=== PATIENT | female | born 1995 | race Caucasian/White ===

== ENCOUNTER 2019-04-02 11:50 | Emergency (ER) | payer BC ==
[2019-04-02 12:50] VITALS: BP 124/92
[2019-04-02] MEDS ORDERED: Sodium Chloride 0.9% 10 ML Syringe FLUSH PRN (14:25)
[2019-04-02] MEDS ORDERED: Ondansetron 4 MG/2 ML SDV IVPUSH ONE (14:25)
[2019-04-02] MEDS ORDERED: Sodium Chloride 0.9% 1,000 ML IV STA (14:25)
[2019-04-02] MEDS ORDERED: Diatrizoate Meglumine/Diatrizoate Sodium 37% 120 ML Bottle PO ONE (14:44)
[2019-04-02] MEDS ORDERED: Iopamidol 612 MG/ML 100 ML Bottle IVPUSH ONE (14:44)
[2019-04-02] MEDS: Sodium Chloride 0.9% 10 ML Syringe FLUSH PRN ×2 (14:47→15:53)
--- NOTE | 2019-04-02 16:20 | CT ---
CT abdomen and pelvis Technique: Multiple axial sections were obtained from above the dome of the diaphragm inferiorly through the pubic symphysis. Intravenous and oral contrast was utilized. Delayed images were obtained through the bladder. Findings: Visualized portions of both lung bases show nothing acute. No focal abnormality is seen within the liver. Spleen appears within normal limits. Gallbladder contains no calcified gallstones. Adrenal glands show no nodule. Pancreas is within normal limits. Kidneys show symmetric contrast enhancement without hydronephrosis or mass. Aorta shows no aneurysm. No retroperitoneal adenopathy or mesenteric abnormalities are seen. No pelvic mass or adenopathy is identified. Appendix not definitely visualized. Delayed images shows contrast within the distal ureters and within the bladder. Bone window settings were reviewed which appear within normal limits for the patient's age. Impression: 1. Nothing acute is appreciated on CT study of the abdomen and pelvis. No etiology is identified on this study to indicate a source of rectal bleeding. Diagnostic code #1
--- NOTE | 2019-04-02 18:09 | EDM.PDOC ---
ED HPI GENERAL MEDICAL PROBLEM - General Chief Complaint: Gastrointestinal Problem Stated Complaint: RECTAL BLEEDING Time Seen by Provider: 04/02/19 14:08 Source of Information: Reports: Patient History Limitations: Reports: No Limitations - History of Present Illness INITIAL COMMENTS - FREE TEXT/NARRATIVE: The patient presents with rectal bleeding. This started 1 hour before arrival. The patient did not come back right away due to how busy it was in the ER. By the time she came back she had more bleeding and she was a little lightheaded and nauseated. She has some mild pain to the left abdomen. She is currently on her period. She has no fever, chills, cough, congestion, runny nose, chest pain or shortness of breath. She does have some hemorrhoids but she is not sure if those are bleeding. Onset: Sudden Duration: Hour(s): Location: Reports: Abdomen Quality: Reports: Ache Severity: Mild Improves with: Reports: None Worsens with: Reports: None Associated Symptoms: Reports: Nausea/Vomiting. Denies: Chest Pain, Cough, Fever /Chills, Headaches, Shortness of Breath Lower Abdominal Pain Score (Numeric/FACES): 6 - Related Data Allergies Allergy/AdvReac Type Severity Reaction Status Date / Time Latex, Natural Rubber Allergy Hives Verified 04/02/19 12:50 Home Meds: Home Meds Albuterol Sulfate [Albuterol Sulfate HFA] 8.5 gm IH ASDIRECTED PRN 03/15/15 [ History] Budesonide/Formoterol [Symbicort 160-4.5 MCG] 10.2 gm IH ASDIRECTED PRN [History] Hydrocortisone [Hydrocortisone 2.5% Crm] 30 gm .XX BID #1 tube 04/02/19 [Rx] Past Medical History Respiratory History: Reports: Asthma Other [employer] History: had some bleeding throughout the . unable to determine cause Other Dermatologic History: eczema. lesion noted on left hand - Past Surgical History Female Surgical History: Reports: D&C Social & Family History - Tobacco Use Smoking Status *Q: Never Smoker - Recreational Drug Use Recreational Drug Use: No ED ROS GENERAL - Review of Systems Review Of Systems: See Below Constitutional: Reports: No Symptoms HEENT: Reports: No Symptoms Respiratory: Reports: No Symptoms Cardiovascular: Reports: No Symptoms Endocrine: Reports: No Symptoms GI/Abdominal: Reports: Abdominal Pain (mild), Bloody Stool, Nausea. Denies: Vomiting : Reports: No Symptoms Musculoskeletal: Reports: No Symptoms ED EXAM, GI/ABD - Physical Exam Exam: See Below Exam Limited By: No Limitations General Appearance: Alert, No Apparent Distress Ears: Normal External Exam Nose: Normal Inspection Head: Atraumatic, Normocephalic Neck: Normal Inspection Respiratory/Chest: No Respiratory Distress, Lungs Clear, Normal Breath Sounds Cardiovascular: Regular Rate, Rhythm, No Edema, No Murmur GI/Abdominal Exam: Soft, Non-Tender, No Organomegaly, No Mass Rectal (Female) Exam: Other (Hemorrhoids with what appears to be an anterior hemorrhoid that is the bleeding source) Back Exam: Normal Inspection Extremities: Normal Inspection Course - Vital Signs Last Recorded V/S: Last Vital Signs Temp 98.7 F 04/02/19 12:46 Pulse 82 04/02/19 12:46 Resp 16 04/02/19 12:46 BP 124/92 H 04/02/19 12:46 Pulse Ox 95 04/02/19 12:46 Orthostatic Blood Pressure [ 129/73 Standing] - Orders/Labs/Meds Orders: Active Orders 24 hr Category Date Time Status Peripheral IV Care [RC] . DIRECTED Care 04/02/19 14:25 Active Sodium Chloride 0.9% [Saline Flush] Med 04/02/19 14:25 Active 10 ml FLUSH ASDIRECTED PRN Sodium Chloride 0.9% [Saline Flush] Med 04/02/19 14:44 Active 10 ml FLUSH ONETIME PRN ED Antiemetic Medication Reflex [OM.PC] Stat Oth 04/02/19 14:25 Ordered Peripheral IV Insertion Adult [OM.PC] Stat Oth 04/02/19 14:25 Ordered Medication Orders Sodium Chloride (Saline Flush) 10 ml FLUSH ASDIRECTED PRN PRN Reason: Keep Vein Open Last Admin: 04/02/19 14:40 Dose: 10 ml Sodium Chloride (Saline Flush) 10 ml FLUSH ONETIME PRN PRN Reason: IV FLUSH Last Admin: 04/02/19 15:53 Dose: 10 ml Admin: 04/02/19 14:47 Dose: 10 ml Labs: Laboratory Tests 04/02/19 04/02/19 04/02/19 Range/Units 14:37 14:37 14:37 WBC 6.66 (3.98-10.04) K/mm3 RBC 5.27 H (3.98-5.22) M/mm3 Hgb 15.5 (11.2-15.7) gm/L Hct 45.0 H (34.1-44.9) % MCV 85.4 (79.4-94.8) fl MCH 29.4 (25.6-32.2) pg MCHC 34.4 (32.2-35.5) g/dl RDW Std Deviation 38.7 (36.4-46.3) fL Plt Count 322 (182-369) K/mm3 MPV 9.6 (9.4-12.3) fl Neut % (Auto) 65.3 (34.0-71.1) % Lymph % (Auto) 23.4 (19.3-51.7) % Beaver % (Auto) 7.8 (4.7-12.5) % Eos % (Auto) 2.7 (0.7-5.8) Baso % (Auto) 0.6 (0.1-1.2) % Neut # (Auto) 4.35 (1.56-6.13) K/mm3 Lymph # (Auto) 1.56 (1.18-3.74) K/mm3 Beaver # (Auto) 0.52 H (0.24-0.36) K/mm3 Eos # (Auto) 0.18 (0.04-0.36) K/mm3 Baso # (Auto) 0.04 (0.01-0.08) K/mm3 Sodium 143 (136-145) mEq/L Potassium 3.5 (3.5-5.1) mEq/L Chloride 104 (98-107) mEq/L Carbon Dioxide 26 (21-32) mEq/L Anion Gap 16.5 H (5-15) BUN 15 (7-18) mg/dL Creatinine 0.7 (0.55-1.02) mg/dL Est Cr Clr Drug Dosing 104.28 mL/min Estimated GFR (MDRD) > 60 (>60) mL/min BUN/Creatinine Ratio 21.4 H (14-18) Glucose 76 (74-106) mg/dL Calcium 9.5 (8.5-10.1) mg/dL Total Bilirubin 0.5 (0.2-1.0) mg/dL AST 15 (15-37) U/L ALT 22 (14-59) U/L Alkaline Phosphatase 66 (46-116) U/L Total Protein 8.4 H (6.4-8.2) g/dl Albumin 4.5 (3.4-5.0) g/dl Globulin 3.9 gm/dL Albumin/Globulin Ratio 1.2 (1-2) Lipase 128 (73-393) U/L HCG, Qual Negative (NEGATIVE) Blood Type Gel Antibody Screen 04/02/19 Range/Units 14:37 WBC (3.98-10.04) K/mm3 RBC (3.98-5.22) M/mm3 Hgb (11.2-15.7) gm/L Hct (34.1-44.9) % MCV (79.4-94.8) fl MCH (25.6-32.2) pg MCHC (32.2-35.5) g/dl RDW Std Deviation (36.4-46.3) fL Plt Count (182-369) K/mm3 MPV (9.4-12.3) fl Neut % (Auto) (34.0-71.1) % Lymph % (Auto) (19.3-51.7) % Beaver % (Auto) (4.7-12.5) % Eos % (Auto) (0.7-5.8) Baso % (Auto) (0.1-1.2) % Neut # (Auto) (1.56-6.13) K/mm3 Lymph # (Auto) (1.18-3.74) K/mm3 Beaver # (Auto) (0.24-0.36) K/mm3 Eos # (Auto) (0.04-0.36) K/mm3 Baso # (Auto) (0.01-0.08) K/mm3 Sodium (136-145) mEq/L Potassium (3.5-5.1) mEq/L Chloride (98-107) mEq/L Carbon Dioxide (21-32) mEq/L Anion Gap (5-15) BUN (7-18) mg/dL Creatinine (0.55-1.02) mg/dL Est Cr Clr Drug Dosing mL/min Estimated GFR (MDRD) (>60) mL/min BUN/Creatinine Ratio (14-18) Glucose (74-106) mg/dL Calcium (8.5-10.1) mg/dL Total Bilirubin (0.2-1.0) mg/dL AST (15-37) U/L ALT (14-59) U/L Alkaline Phosphatase (46-116) U/L Total Protein (6.4-8.2) g/dl Albumin (3.4-5.0) g/dl Globulin gm/dL Albumin/Globulin Ratio (1-2) Lipase (73-393) U/L HCG, Qual (NEGATIVE) Blood Type A POSITIVE Gel Antibody Screen Negative Meds: Medications Generic Name Dose Route Start Last Admin Trade Name Freq PRN Reason Stop Dose Admin Sodium Chloride 10 ml 04/02/19 14:25 04/02/19 14:40 Saline Flush FLUSH 10 ml ASDIRECTED PRN Administration Keep Vein Open Sodium Chloride 10 ml 04/02/19 14:44 04/02/19 15:53 Saline Flush FLUSH 10 ml ONETIME PRN Administration IV FLUSH Discontinued Medications Generic Name Dose Route Start Last Admin Trade Name Freq PRN Reason Stop Dose Admin Diatrizoate Meglum/Diatrizoate Sod 120 ml 04/02/19 14:44 04/02/19 15:53 Gastrografin 37% PO 04/02/19 14:45 120 ml ONETIME ONE Administration Sodium Chloride 1,000 mls @ 1,000 mls/hr 04/02/19 14:25 04/02/19 14:40 Normal Saline IV 04/02/19 15:24 1,000 mls/hr .BOLUS STA Administration Iopamidol 100 ml 04/02/19 14:44 04/02/19 15:53 Isovue-300 (61%) IVPUSH 04/02/19 14:45 100 ml ONETIME ONE Administration Ondansetron HCl 4 mg 04/02/19 14:25 04/02/19 14:40 Zofran IVPUSH 04/02/19 14:26 4 mg ONETIME ONE Administration - Re-Assessments/Exams Free Text/Narrative Re-Assessment/Exam: 04/02/19 18:02 I ordered an IV NS 1L bolus, labs, and a CT of her abdomen and pelvis. Her Hgb was normal at 15.5. Her CMP looks good. Her HCG is negative. Her CT shows nothing acute. She was here for awhile because of how busy it is and the bleeding got better. I will get her on some hydrocortisone cream and some lidocaine and have her follow up with Dr Al. I called Dr Al and she can see her in clinic. Departure - Departure Time of Disposition: 18:10 Disposition: Home, Self-Care 01 Condition: Good Clinical Impression: Rectal bleeding Hemorrhoids Qualifiers: Hemorrhoid type: other Qualified Code(s): K64.8 - Other hemorrhoids - Discharge Information *PRESCRIPTION DRUG MONITORING PROGRAM REVIEWED*: No *COPY OF PRESCRIPTION DRUG MONITORING REPORT IN PATIENT SEBASTIAN: No Prescriptions: Hydrocortisone [Hydrocortisone 2.5% Crm] 30 gm .XX BID #1 tube Referrals: Zheng Rushing MD [Primary Care Provider] - Servando-Pita Alvarenga MD [Physician] - 2 Days Additional Instructions: Drink plenty of fluids. Take a stool softener like colace to keep your bowel movements lose. Use the hydrocortisone cream 2 times per day on the hemorrhoids. Follow up with Dr Al within a week. - My Orders Last 24 Hours: My Active Orders 04/02/19 14:25 Peripheral IV Care [RC] . DIRECTED Sodium Chloride 0.9% [Saline Flush] 10 ml FLUSH ASDIRECTED PRN ED Antiemetic Medication Reflex [OM.PC] Stat Peripheral IV Insertion Adult [OM.PC] Stat 04/02/19 14:44 Sodium Chloride 0.9% [Saline Flush] 10 ml FLUSH ONETIME PRN - Assessment/Plan Last 24 Hours: My Active Orders 04/02/19 14:25 Peripheral IV Care [RC] . DIRECTED Sodium Chloride 0.9% [Saline Flush] 10 ml FLUSH ASDIRECTED PRN ED Antiemetic Medication Reflex [OM.PC] Stat Peripheral IV Insertion Adult [OM.PC] Stat 04/02/19 14:44 Sodium Chloride 0.9% [Saline Flush] 10 ml FLUSH ONETIME PRN
== END 2019-04-02 18:28 | disposition home or self-care (01) ==
LOC: JD.ED 11:50
DX: K64.8 Other hemorrhoids (principal); R42 Dizziness and giddiness; J45.909 Unspecified asthma, uncomplicated; Z91.040 Latex allergy status; Z79.51 Long term (current) use of inhaled steroids
CPT/HCPCS: 36415; 74177; 80053; 83690; 84703; 85025; 86850; 86900; 86901; 96361; 96374; 99284; J2405; J7040; Q9963; Q9967; 99283

== ENCOUNTER 2019-06-09 17:27 | Emergency (ER) | payer BC ==
[2019-06-09 17:59] VITALS: BP 112/69; PULSE 80
[2019-06-09] MEDS ORDERED: HYDROmorphone 0.5 MG/0.5 ML Syringe IM ONE (18:20)
[2019-06-09] MEDS ORDERED: Ondansetron 4 MG Tab.DIS PO ONE (18:20)
--- NOTE | 2019-06-09 18:41 | CR ---
Left foot: 4 views left foot were obtained. Comparison: No prior foot exam. Nondisplaced fracture is identified within the base of the fifth metatarsal. No additional fracture or other bony abnormality is seen. Incidental note of ununited os navicularis. Impression: 1. Nondisplaced fracture involving the base of the fifth metatarsal. 2. No other acute abnormality is seen. Diagnostic code #3
--- NOTE | 2019-06-09 20:04 | EDM.PDOC ---
ED HPI GENERAL MEDICAL PROBLEM - General Chief Complaint: Lower Extremity Injury/Pain Stated Complaint: R FOOT INJURY Time Seen by Provider: 06/09/19 18:43 Source of Information: Reports: Patient, RN Notes Reviewed History Limitations: Reports: No Limitations - History of Present Illness INITIAL COMMENTS - FREE TEXT/NARRATIVE: Patient is a 23-year-old female who presents to the ED for evaluation of a right foot injury. Patient states she was carrying an empty car seat, she tripped off the edge of her driveway. She states she felt an instant pop, and severe pain to the right lateral foot. She then noticed some severe right foot bruising and swelling. She would rate her pain at a 5 out of 10, she did not take any pain medications prior to coming to the ER, she states that it is difficult to bear weight on the extremity. Denies any numbness or tingling distal to the injury, she denies any pain that radiates superior to the injury. She denies any ankle pain. Right Feet Pain Score (Numeric/FACES): 5 - Related Data Allergies Allergy/AdvReac Type Severity Reaction Status Date / Time Latex, Natural Rubber Allergy Hives Verified 06/09/19 17:59 Home Meds: Home Meds Albuterol Sulfate [Albuterol Sulfate HFA] 8.5 gm IH ASDIRECTED PRN 03/15/15 [ History] Budesonide/Formoterol [Symbicort 160-4.5 MCG] 10.2 gm IH ASDIRECTED PRN [History] Acetaminophen/oxyCODONE [Percocet 325-5 MG] 1 each PO Q6H PRN #20 tab 06/09/19 [ Rx] ClomiPRAMINE [ClomiPRAMINE HCl] 25 mg PO DAILY 06/09/19 [History] Past Medical History Respiratory History: Reports: Asthma Other [employer] History: had some bleeding throughout the . unable to determine cause Other Dermatologic History: eczema. lesion noted on left hand - Past Surgical History HEENT Surgical History: Reports: Adenoidectomy, Tonsillectomy Female Surgical History: Reports: D&C Social & Family History - Family History Family Medical History: Noncontributory - Tobacco Use Smoking Status *Q: Never Smoker Second Hand Smoke Exposure: No - Caffeine Use Caffeine Use: Reports: Coffee, Soda, Tea - Recreational Drug Use Recreational Drug Use: No Review of Systems - Review of Systems Review Of Systems: ROS reveals no pertinent complaints other than HPI. Musculoskeletal: Reports: Foot Pain (R lateral foot pain) ED EXAM, GENERAL - Physical Exam Exam: See Below Exam Limited By: No Limitations General Appearance: Alert, WD/WN, No Apparent Distress (Patient appears to be in pain, however is in no obvious distress.) Respiratory/Chest: No Respiratory Distress, Lungs Clear, Normal Breath Sounds, No Accessory Muscle Use, Chest Non-Tender Cardiovascular: Normal Peripheral Pulses, Regular Rate, Rhythm, No Murmur Peripheral Pulses: 3+: Dorsalis Pedis (L), Dorsalis Pedis (R) Extremities: Normal Range of Motion, Normal Capillary Refill, Other (Bruising on the lateral aspect of the right foot over the fifth metatarsal) Neurological: Alert, Oriented, Normal Cognition, No Motor/Sensory Deficits Psychiatric: Normal Affect, Normal Mood Skin Exam: Warm, Dry, Intact, No Rash, Ecchymosis (Right lateral foot over the fifth metatarsal, this is tender to palpation.). No: Wound/Incision Course - Vital Signs Last Recorded V/S: Last Vital Signs Temp 99.0 F 06/09/19 17:55 Pulse 80 06/09/19 17:55 Resp 16 06/09/19 17:55 BP 112/69 06/09/19 17:55 Pulse Ox 98 06/09/19 17:55 - Orders/Labs/Meds Orders: Active Orders 24 hr Category Date Time Status DME for Discharge [COMM] Routine Oth 06/09/19 19:51 Ordered Meds: Medications Discontinued Medications Generic Name Dose Route Start Last Admin Trade Name Nel PRN Reason Stop Dose Admin Hydromorphone HCl 0.5 mg 06/09/19 18:20 06/09/19 18:32 Dilaudid IM 06/09/19 18:21 0.5 mg ONETIME ONE Administration Ondansetron HCl 4 mg 06/09/19 18:20 06/09/19 18:33 Zofran Odt PO 06/09/19 18:21 4 mg ONETIME ONE Administration - Re-Assessments/Exams Free Text/Narrative Re-Assessment/Exam: 06/09/19 20:30 Patient presents to the ED for evaluation of a right foot injury. Foot x-rays were obtained at time of triage, and this demonstrated a nondisplaced fracture at the base of the fifth metatarsal. There were no other acute abnormalities noted. I did give the patient 0.5 mg so wanted, she did receive good pain control with this. Options were discussed regarding watching for walking boot versus splint. However she will need to be nonweightbearing. She decided to go with a walking boot, will use crutches until cleared by Ortho, or obtain one of those knee scooters, she thinks her [id number] has had one in the past. She states that she has 2 young children at home, so it'll be hard for her to be on crutches. I stressed the importance of being nonweightbearing, she is understanding of this. Patient was given some tablets of Percocet for pain control that was not relieved by Tylenol or ibuprofen alone. Departure - Departure Time of Disposition: 20:04 Disposition: Home, Self-Care 01 Condition: Fair Clinical Impression: Fracture of fifth metatarsal bone Qualifiers: Encounter type: initial encounter Fracture type: closed Fracture alignment: nondisplaced Laterality: right Qualified Code(s): S92.354A - Nondisplaced fracture of fifth metatarsal bone, right foot, initial encounter for closed fracture - Discharge Information *PRESCRIPTION DRUG MONITORING PROGRAM REVIEWED*: No *COPY OF PRESCRIPTION DRUG MONITORING REPORT IN PATIENT SEBASTIAN: No Prescriptions: Acetaminophen/oxyCODONE [Percocet 325-5 MG] 1 each PO Q6H PRN #20 tab PRN Reason: Pain Instructions: Metatarsal Fracture Referrals: Zheng Rushing MD [Primary Care Provider] - Forms: ED Department Discharge Additional Instructions: You have been evaluated in the ED for your right foot injury. Your x-ray demonstrated that you fractured the base of your fifth metatarsal on your right foot. This is nondisplaced, and should heal nicely. Bones take about 6-8 weeks to heal completely. You were placed in a walking boot, however just because this states it is a walking boot, you may not walk on this extremity. You will need to be nonweightbearing, and use crutches provided until Ortho can clear you completely. He may try to obtain a knee scooter, if the crutches are to cumbersome for you. But again you need to remain nonweightbearing until Ortho can clear you Please use ice as tolerated to the affected area. You may take Tylenol 500 mg or ibuprofen 600mg q6 hrs for pain relief. Please do so until you have a tolerable level of pain with activity. Do not exceed 4000mg tylenol, Do not exceed 3200mg ibuprofen in a 24 hour time period. You were given a prescription for Percocet 5/325, you may take this 1 tablet every 6 hours PRN for pain not relieved by Tylenol or ibuprofen alone. Please call Ortho for follow-up and further evaluation Dr. Burleson is our orthopedic surgeon, his office number is [phone]. Please call and set up an appointment as soon as possible for further management. Please return to ED if your symptoms should change or worsen. - My Orders Last 24 Hours: My Active Orders 06/09/19 19:51 DME for Discharge [COMM] Routine - Assessment/Plan Last 24 Hours: My Active Orders 06/09/19 19:51 DME for Discharge [COMM] Routine
== END 2019-06-09 20:56 | disposition home or self-care (01) ==
LOC: JD.ED 17:27
DX: S92.354A Nondisplaced fracture of fifth metatarsal bone, right foot, initial encounter for closed fracture (principal); J45.909 Unspecified asthma, uncomplicated; Z91.040 Latex allergy status; W18.40XA Slipping, tripping and stumbling without falling, unspecified, initial encounter; Y93.01 Activity, walking, marching and hiking; Y92.093 Driveway of other non-institutional residence as the place of occurrence of the external cause
CPT/HCPCS: 73630; 96372; 99283; A9270; J1170

== ENCOUNTER 2022-07-24 07:04 | Day surgery (SDC) | payer BC ==
[2022-07-24] MEDS ORDERED: EPINEPHrine 1 MG/ML SDV ONE (07:05)
[2022-07-24] MEDS ORDERED: Lidocaine 1% 5 ML VIAL INJECT ONE (07:05)
[2022-07-24] MEDS ORDERED: Sodium Chloride 0.9% 50 ML SDV ONE (07:13)
[2022-07-24] MEDS ORDERED: Sodium Chloride 0.9% 10 ML Syringe FLUSH PRN (07:34)
[2022-07-24] MEDS ORDERED: Lidocaine 1%/Sod Bicarbonate in NS 8.4% 1 ML Syringe IDERM PRN (07:34)
[2022-07-24] MEDS ORDERED: Lactated Ringers 1,000 ML IV SCH (07:45)
[2022-07-24] MEDS ORDERED: Sodium Chloride 0.9% 10 ML Syringe FLUSH SCH (09:00)
[2022-07-24] MEDS ORDERED: Midazolam 1 MG/ML 2 ML SDV ONE (09:12)
[2022-07-24] MEDS ORDERED: Propofol 200 MG/20 ML SDV ONE (09:12)
[2022-07-24] MEDS ORDERED: fentaNYL 100 MCG/2 ML SDV ONE (09:12)
[2022-07-24] MEDS ORDERED: Lidocaine 1% 6 ML ONE (09:13)
[2022-07-24] MEDS ORDERED: Succinylcholine 200 MG/10 ML MDV ONE (09:21)
[2022-07-24] MEDS ORDERED: ceFAZolin 2 GM Vial ONE (09:40)
[2022-07-24] MEDS ORDERED: Metoclopramide 10 MG/2 ML SDV ONE (09:52)
[2022-07-24] MEDS ORDERED: Ondansetron 4 MG/2 ML SDV ONE (09:52)
[2022-07-24] MEDS ORDERED: fentaNYL 100 MCG/2 ML SDV IVPUSH PRN (10:03)
[2022-07-24] MEDS ORDERED: HYDROmorphone 0.5 MG/0.5 ML Syringe IVPUSH PRN (10:03)
[2022-07-24] MEDS ORDERED: Lactated Ringers 1,000 ML ONE (10:18)
[2022-07-24] MEDS ORDERED: Acetaminophen/oxyCODONE 325-5 MG Tab PO PRN (10:37)
[2022-07-24] MEDS ORDERED: Ondansetron 4 MG/2 ML SDV IVPUSH PRN (10:37)
[2022-07-24] MEDS ORDERED: Ketorolac 30 MG/ML SDV IVPUSH SCH (10:45)
[2022-07-24] MEDS ORDERED: Meperidine 50 MG/ML Vial ONE (10:54)
[2022-07-24] MEDS ORDERED: Acetaminophen/oxyCODONE 325-5 MG Tab PO ONE (11:10)
[2022-07-24 12:48] VITALS: BP 113/72; PULSE 72
[2022-07-24] MEDS ORDERED: Ibuprofen 600 MG Tab PO PRN (16:45)
== END 2022-07-24 12:35 | disposition home or self-care (01) ==
LOC: JD.SDS 07:04
PROVIDERS: ATTEND Obstetrics & Gynecology
DX: N75.0 Cyst of Bartholin's gland (principal); N90.7 Vulvar cyst; N81.10 Cystocele, unspecified; N81.6 Rectocele; J45.909 Unspecified asthma, uncomplicated; K21.9 Gastro-esophageal reflux disease without esophagitis; Z91.040 Latex allergy status; Z91.018 Allergy to other foods; Z79.899 Other long term (current) drug therapy; Z98.890 Other specified postprocedural states
CPT/HCPCS: 57260; A9270; J0171; J0330; J0690; J2175; J2250; J2405; J2704; J2765; J3010; J7120; 00942

== ENCOUNTER 2023-08-08 07:47 | Day surgery (SDC) | payer BC ==
[~2023-08-08 07:47] MED LIST: Lactated Ringers 1,000 ML IV SCH; Sodium Chloride 0.9% 10 ML Syringe FLUSH PRN; Sodium Chloride 0.9% 10 ML Syringe FLUSH SCH
[2023-08-08] MEDS ORDERED: Propofol 200 MG/20 ML SDV ONE ×2 (09:30→10:24)
[2023-08-08] MEDS ORDERED: fentaNYL 100 MCG/2 ML SDV ONE (09:30)
[2023-08-08] MEDS ORDERED: Midazolam 1 MG/ML 2 ML SDV ONE (09:30)
[2023-08-08] MEDS ORDERED: Lidocaine 1% 4 ML ONE (09:41)
[2023-08-08 11:50] VITALS: BP 118/74; PULSE 74
== END 2023-08-08 11:44 | disposition home or self-care (01) ==
LOC: JD.SDS 07:47
PROVIDERS: ATTEND Student in an Organized Health Care Education/Training Program
DX: K64.4 Residual hemorrhoidal skin tags (principal); J01.90 Acute sinusitis, unspecified; J45.909 Unspecified asthma, uncomplicated; J45.901 Unspecified asthma with (acute) exacerbation; N92.6 Irregular menstruation, unspecified; Z79.899 Other long term (current) drug therapy; Z91.040 Latex allergy status; Z79.51 Long term (current) use of inhaled steroids
CPT/HCPCS: 43235; 45378; J2250; J2704; J3010; J7120; J3490

== ENCOUNTER 2023-11-29 19:52 | Emergency (ER) | payer BC ==
[2023-11-29 20:03] VITALS: BP 123/61; PULSE 72
[2023-11-29] MEDS: Acetaminophen 325 MG Tab PO ONE (20:34)
== END 2023-11-29 20:48 | disposition home or self-care (01) ==
LOC: JD.ED 19:52
DX: S06.0X0A Concussion without loss of consciousness, initial encounter (principal); J45.909 Unspecified asthma, uncomplicated; Z91.040 Latex allergy status; Z91.018 Allergy to other foods; Z79.51 Long term (current) use of inhaled steroids; W22.8XXA Striking against or struck by other objects, initial encounter
CPT/HCPCS: 70450; 99283; A9270

== ENCOUNTER 2024-07-19 12:48 | Emergency (ER) | payer BC ==
[2024-07-19] MEDS: predniSONE 10 MG Tab PO ONE (13:40)
[2024-07-19 13:48] VITALS: BP 105/77; PULSE 75
== END 2024-07-19 13:40 | disposition home or self-care (01) ==
LOC: JD.ED 12:48
DX: T78.40XA Allergy, unspecified, initial encounter (principal); J45.909 Unspecified asthma, uncomplicated; Z91.018 Allergy to other foods; Z91.040 Latex allergy status; Z79.899 Other long term (current) drug therapy
CPT/HCPCS: 99282; J7512

== ENCOUNTER 2025-01-07 22:58 | Emergency (ER) | payer BC ==
[2025-01-07] MEDS ORDERED: Sodium Chloride 0.9% 10 ML Syringe FLUSH PRN (23:33)
[2025-01-07 23:39] LABS: BASOPHILS PERCENT AUTO 0.5 % (0.0-1.0); EOSINOPHILS ABSOLUTE AUTO 0.3 K/mm3 (0.0-0.4); EOSINOPHILS PERCENT AUTO 3.8 % (0.0-6.0); HEMATOCRIT 42.1 % (37.0-47.0); HEMOGLOBIN 14.3 gm/dl (12.0-16.0); IMMATURE GRAN ABSOLUTE AUTO 0.04 K/mm3 (0.00-0.05); IMMATURE GRAN PERCENT AUTO 0.5 % (0.0-0.4); LYMPHOCYTES ABSOLUTE AUTO 1.1 K/mm3 (1.0-4.8); LYMPHOCYTES PERCENT AUTO 14.7 % (24.0-44.0); MEAN CORPUSCULAR HEMOGLOBIN 29.8 pg (28.0-32.0); MEAN CORPUSCULAR VOLUME 87.7 fl (83.0-99.0); MEAN PLATELET VOLUME 9.6 fl (9.4-12.3); MONOCYTES ABSOLUTE AUTO 0.4 K/mm3 (0.0-0.8); MONOCYTES PERCENT AUTO 5.4 % (0.0-8.0); NEUTROPHILS ABSOLUTE AUTO 5.7 K/mm3 (1.8-7.7); NEUTROPHILS PERCENT AUTO 75.1 % (41.0-71.0); PLATELET COUNT,PLT 221 K/mm3 (150-400); WHITE BLOOD CELL COUNT,WBC 7.61 K/mm3 (3.9-11.3)
[2025-01-07] MEDS: Sodium Chloride 0.9% 1,000 ML IV SCH (23:45)
[2025-01-07] MEDS: Ondansetron 4 MG/2 ML SDV IVPUSH ONE (23:46)
[2025-01-07 23:51] LABS: A/G RATIO 1.1 (1-2); ALBUMIN 4.1 g/dl (3.4-5.0); BILIRUBIN TOTAL 0.5 mg/dL (0.2-1.0); BUN/CREATININE RATIO 22.5 (14-18); C-REACTIVE PROTEIN 2.52 mg/dL (<0.30); CALCIUM 9.6 mg/dL (8.5-10.1); CREATININE 0.8 mg/dL (0.55-1.02); EST CRCL DRUG DOSING (CG) 86.6 mL/min; PROTEIN TOTAL,TP 7.8 g/dl (6.4-8.2)
[2025-01-08 01:48] VITALS: BP 108/62; PULSE 83
== END 2025-01-08 01:29 | disposition home or self-care (01) ==
LOC: JD.ED 22:58
DX: R10.10 Upper abdominal pain, unspecified (principal); R19.7 Diarrhea, unspecified; J45.909 Unspecified asthma, uncomplicated; Z91.040 Latex allergy status; Z91.018 Allergy to other foods; Z79.51 Long term (current) use of inhaled steroids; Z79.899 Other long term (current) drug therapy
CPT/HCPCS: 36415; 74019; 80053; 83690; 84703; 85025; 86140; 96361; 96374; 99284; J2405; J7030

== ENCOUNTER 2025-01-14 07:32 | Day surgery (SDC) | payer BC ==
[~2025-01-14 07:32] MED LIST changes: -Lactated Ringers 1,000 ML IV SCH
[2025-01-14] MEDS: Lactated Ringers 1,000 ML IV SCH (07:45)
[2025-01-14] MEDS ORDERED: Propofol 200 MG/20 ML SDV ONE (08:45)
[2025-01-14] MEDS ORDERED: Lidocaine 1% 4 ML ONE (08:45)
[2025-01-14 12:20] VITALS: BP 116/68; PULSE 81
== END 2025-01-14 09:41 | disposition home or self-care (01) ==
LOC: JD.SDS 07:32
PROVIDERS: ATTEND Surgery
DX: K20.0 Eosinophilic esophagitis (principal); K29.80 Duodenitis without bleeding; K29.50 Unspecified chronic gastritis without bleeding; Z88.8 Allergy status to other drugs, medicaments and biological substances; Z91.040 Latex allergy status; Z91.018 Allergy to other foods; Z79.899 Other long term (current) drug therapy
CPT/HCPCS: 43239; C9777; J2003; J2704; J7120; 00731

== ENCOUNTER 2025-05-19 13:15 | Emergency (ER) | payer BC ==
[2025-05-19] MEDS ORDERED: Sodium Chloride 0.9% 10 ML Syringe FLUSH PRN (13:44)
[2025-05-19 14:01] LABS: BASOPHILS ABSOLUTE AUTO 0.1 K/mm3 (0.0-0.2); BASOPHILS PERCENT AUTO 1.0 % (0.0-1.0); EOSINOPHILS ABSOLUTE AUTO 0.4 K/mm3 (0.0-0.4); EOSINOPHILS PERCENT AUTO 4.8 % (0.0-6.0); IMMATURE GRAN ABSOLUTE AUTO 0.02 K/mm3 (0.00-0.05); IMMATURE GRAN PERCENT AUTO 0.3 % (0.0-0.4); LYMPHOCYTES ABSOLUTE AUTO 2.0 K/mm3 (1.0-4.8); LYMPHOCYTES PERCENT AUTO 27.5 % (24.0-44.0); MEAN PLATELET VOLUME 9.9 fl (9.4-12.3); MONOCYTES ABSOLUTE AUTO 0.5 K/mm3 (0.0-0.8); MONOCYTES PERCENT AUTO 7.2 % (0.0-8.0); NEUTROPHILS ABSOLUTE AUTO 4.3 K/mm3 (1.8-7.7); NEUTROPHILS PERCENT AUTO 59.2 % (41.0-71.0); NRBC ABSOLUTE 0.00 (0.00-0.02); NRBC PERCENT 0.0 % (0.0-0.2); PLATELET COUNT,PLT 263 K/mm3 (150-400); RED BLOOD CELL COUNT 5.23 M/mm3 (4.10-5.30); WHITE BLOOD CELL COUNT,WBC 7.23 K/mm3 (3.9-11.3)
[2025-05-19] MEDS: Alum Hydrox/Mag Hydrox/Simeth 30 ML, Lidocaine 2% 15 ML PO ONE (14:04)
[2025-05-19 14:12] LABS: A/G RATIO 1.2 (1-2); ALANINE AMINOTRANSFERASE,ALT 36 U/L (14-59); BILIRUBIN TOTAL 0.5 mg/dL (0.2-1.0); BLOOD UREA NITROGEN,BUN 13 mg/dL (7-18); CARBON DIOXIDE,CO2 28 mEq/L (21-32); CHLORIDE,CL 104 mEq/L (98-107); CREATININE 0.8 mg/dL (0.55-1.02); EST CRCL DRUG DOSING (CG) 82.80 mL/min; ESTIMATED GFR 103 mL/min (>60); GLUCOSE RANDOM 98 mg/dL (70-99); PROTEIN TOTAL,TP 8.4 g/dl (6.4-8.2); SODIUM,NA 141 mEq/L (136-145)
[2025-05-19 14:21] LABS: ASPARTATE AMNIOTRANSFERASE,AST 30 U/L (15-37); POTASSIUM,K 4.4 mEq/L (3.5-5.1); TROPONIN I HIGH SENSITIVITY < 4 pg/mL (<=51)
[2025-05-19 14:43] LABS: APPEARANCE,URINE CLEAR (Clear); GLUCOSE,URINE NEGATIVE (Negative); OCCULT BLOOD,URINE NEGATIVE (Negative)
[2025-05-19] MEDS: Iopamidol 755 Mg/ML 100 ML Bottle IVPUSH ONE (14:45)
[2025-05-19] MEDS: Sodium Chloride 0.9% 10 ML Syringe FLUSH PRN (14:46)
[2025-05-19 14:54] LABS: EPITHELIAL CELLS,URINE 0-5 /hpf (0-5)
[2025-05-19 16:45] VITALS: BP 122/90; PULSE 91
== END 2025-05-19 16:40 | disposition home or self-care (01) ==
LOC: JD.ED 13:15
DX: J21.9 Acute bronchiolitis, unspecified (principal); J06.9 Acute upper respiratory infection, unspecified; R10.13 Epigastric pain; J45.909 Unspecified asthma, uncomplicated; Z79.899 Other long term (current) drug therapy; Z88.1 Allergy status to other antibiotic agents; Z91.040 Latex allergy status; Z91.018 Allergy to other foods
CPT/HCPCS: 36415; 71045; 71275; 76705; 80053; 81001; 83690; 84484; 84703; 85025; 93005; 96360; 99285; A9270; J3490; J7030; Q9967; 93010; 99284